=== PATIENT | male | born 2000 | race Caucasian/White ===

== ENCOUNTER 2019-07-22 16:19 | Emergency (ER) | payer MEDICAID ==
[~2019-07-22] VITALS: Ht 172.7 cm; Wt 73.0 kg
[2019-07-22 17:03] LABS: CLARITY URINE CLEAR (CLEAR); COLOR URINE YELLOW (YELLOW); KETONES URINE NEGATIVE (NEGATIVE); LEUKOCYTE ESTERASE URINE NEGATIVE (NEGATIVE); NITRITE URINE NEGATIVE (NEGATIVE); OCCULT BLOOD URINE TRACE (NEGATIVE); PH URINE 6.5 (4.5-8.0); PROTEIN URINE NEGATIVE (NEGATIVE); SPECIFIC GRAVITY URINE 1.008 (1.005-1.030); UROBILINOGEN URINE 0.2 E.U./dL (0.2-1.0)
[2019-07-22 17:19] LABS: *BARBITURATES SCREEN URINE NEGATIVE (NEGATIVE)
[2019-07-22 17:20] LABS: *AMPHETAMINES SCREEN URINE NEGATIVE (NEGATIVE); *BENZODIAZEPINES SCREEN URINE NEGATIVE (NEGATIVE); *COCAINE SCREEN URINE NEGATIVE (NEGATIVE); METHADONE URINE SCREEN NEGATIVE (NEGATIVE); OPIATES URINE SCREEN NEGATIVE (NEGATIVE); PHENCYCLIDINE URINE SCREEN NEGATIVE (NEGATIVE)
[2019-07-22 17:21] LABS: CANNABINOID URINE SCREEN NEGATIVE (NEGATIVE)
[2019-07-22 17:30] VITALS: BP 122/66
== END 2019-07-22 17:56 | disposition home or self-care (01) ==
LOC: ER 16:19
DX: R42 Dizziness and giddiness (principal); R30.0 Dysuria
CPT/HCPCS: 80305; 81003; 82962; 93005; 99284